=== PATIENT | female | born 1985 | race Caucasian/White ===

== ENCOUNTER 2017-04-02 01:59 | Emergency (ER) | payer SELFPAY ==
[~2017-04-02] VITALS: Ht 170.2 cm; Wt 65.0 kg
[2017-04-02 02:01] VITALS: BP 123/87; PULSE 87; RESP 16; TEMP 98.1; O2SAT 96
[2017-04-02 02:32] VITALS: O2SAT 99
[2017-04-02 02:46] LABS: AUTOMATED NEUTROPHIL # 6.4 TH/MM3 (1.8-7.7); BASOPHIL # 0.1 TH/MM3 (0-0.2); BASOPHIL % 0.8 % (0.0-2.0); EOSINOPHIL # 0.2 TH/MM3 (0-0.4); EOSINOPHIL % 1.6 % (0.0-4.0); HEMO FLAGS DIFF FINAL; LYMPHOCYTE # 3.1 TH/MM3 (1.0-4.8); MEAN CELL VOLUME 87.4 FL (80.0-100.0); MEAN CORPUSCULAR HEMOGLOBIN 29.5 PG (27.0-34.0); MEAN CORPUSCULAR HGB CONC 33.8 % (32.0-36.0); MONO % 9.5 % (0.0-8.0); NEUT % 59.1 % (16.0-70.0); PLATELET COUNT 276 TH/MM3 (150-450); RED BLOOD COUNT 4.23 MIL/MM3 (4.00-5.30); WHITE BLOOD COUNT 10.8 TH/MM3 (4.0-11.0)
[2017-04-02 02:58] LABS: PROTHROMBIN TIME - PATIENT 10.6 SEC (9.8-11.6)
[2017-04-02 03:07] LABS: ALT (GPT) 102 U/L (10-53); ANION GAP 6 MEQ/L (5-15); AST (GOT) 39 U/L (15-37); BICARBONATE 27.5 MEQ/L (21.0-32.0); BLOOD UREA NITROGEN 17 MG/DL (7-18); CHLORIDE 108 MEQ/L (98-107); GLOMERULAR FILTRATION RATE 63 ML/MIN (>89); POTASSIUM 3.8 MEQ/L (3.5-5.1); SODIUM (NA) 141 MEQ/L (136-145)
[2017-04-02 03:08] LABS: BLOOD, URINE NEG (NEG); GLUCOSE,URINE NEG (NEG); KETONE, URINE NEG (NEG); NITRITE,URINE NEG (NEG); PH, URINE 5.5 (5.0-8.5); URINE COLOR LIGHT-YELLOW (YELLW/STRAW)
[2017-04-02 03:14] LABS: BACTERIA, URINE FEW /hpf
[2017-04-02 03:15] LABS: SQUAMOUS EPITHELIAL CELL URINE 0-5 /hpf (0-5)
[2017-04-02 03:16] LABS: ALKALINE PHOSPHATASE 60 U/L (45-117); TOTAL BILIRUBIN ADULT 0.2 MG/DL (0.2-1.0)
[2017-04-02 03:21] LABS: CALCIUM OXALATE CRYSTALS,URINE FEW /hpf
[2017-04-02 03:22] LABS: COMMENT2 (UR) CULT NOT INDICATED
[2017-04-02 03:23] LABS: CULTURE IF INDICATED CULT NOT INDICATED
[2017-04-02] MEDS ORDERED: SODIUM CHLOR 0.9% 1000 ML INJ 1,000 ML IV ONE (03:45)
--- NOTE | 2017-04-02 04:39 | PD ---
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 She reports that she became concerned that it might be related to her irregular menstrual cycle. She reports that over the last 2 weeks she has had intermittent bleeding. She reports that normally her menstrual cycle will last for only 2 days and is light. The patient reports that she is sexually active and has not been regularly using contraceptive. The patient additionally reports that over the last few months she's had a rash on her extremities. She reports that it looks like scab blankenship. The patient reports that she does intermittently use methamphetamine. She reports that she does inject methamphetamine. She has not recently been checked for HIV or hepatitis. She denies any positive testing in the past. The patient reports that her vision has been intermittently blurry. She reports that sometimes it' ll clear with blinking her eyes. She reports that she wears contacts, however she has not been wearing them recently. Her last eye examination was and 2010. She reports that she has not had The patient denies any known recent fevers, cough, congestion, neck pain, chest pain, shortness of breath, abdominal pain, vomiting, diarrhea, urinary symptoms, or other neurologic symptoms. LMP: 2 weeks ago PFSH Past Medical History Narrative Medical The patient's past medical history is significant for IV drug use including methamphetamine and Cornelio. The patient has a history of anxiety disorder. Hx Anticoagulant Therapy: No Anxiety: Yes Cardiovascular Problems: No Chemotherapy: No Cerebrovascular Accident: No Diabetes: No Diminished Hearing: No Respiratory: No Immunizations Current: Yes ?: Not LMP: 04/02/17 Menopausal: No : 0 Para: 0 Miscarriage: 0 : 0 Past Surgical History Narrative Surgical The patient's past surgical history is significant for a cholecystectomy, breast reduction, tonsillectomy, IVC filter placement. Surgical History: No Previous Surgery Cholecystectomy: Yes Hysterectomy: No Thoracic Surgery: Yes (BREAST REDUCTION) Tonsillectomy: Yes Other Surgery: Yes (IVC FILTER) Social History Alcohol Use: No Tobacco Use: Yes (daily ) Substance Use: Yes (cornelio) Allergies-Medications (Allergen,Severity, Reaction): Coded Allergies: No Known Allergies (Unverified , 04/02/17) Reported Meds & Prescriptions Reported Meds & Active Scripts Active Keflex (Cephalexin) 500 Mg Cap 500 Mg PO Q6H 10 Days Review of Systems General / Constitutional: Positive: Fever Eyes: Positive: Blurred Vision, No: Visual changes HENT: Positive: Lightheadedness, No: Headaches, Rhinorrhea, Congestion Cardiovascular: No: Chest Pain or Discomfort Respiratory: No: Shortness of Breath Gastrointestinal: No: Abdominal Pain Genitourinary: No: Dysuria Musculoskeletal: No: Pain Skin: Positive Rash Neurologic: Positive: Dizziness, No: Weakness, Focal Abnormalities, Change in Mentation, Slurred Speech, Sensory Disturbance Psychiatric: No: Depression Endocrine: No: Polydipsia Hematologic/Lymphatic: No: Easy Bruising Physical Exam Narrative General: The patient is a well-developed well-nourished female in no acute distress. Head and Neck exam: Head is normocephalic atraumatic. Eyes: EOMI, pupils are equal round and reactive to light. Nose: Midline septum with pink mucous membranes Mouth: Dentition unremarkable. Moist mucus membranes. Posterior oropharynx is not erythematous. No tonsillar hypertrophy. Uvula midline. Airway patent. Neck: No palpable lymphadenopathy. No nuchal rigidity. No thyromegaly. Cardiovascular: Regular rate and rhythm without murmurs, gallops, or rubs. No pulse deficit to the extremities. Lungs: Clear to auscultation bilaterally. No wheezes, rhonchi, or rales. Abdomen: Soft, without tenderness to palpation in all 4 quadrants of the abdomen. No guarding, rebound, or rigidity. Normal bowel sounds are audible. No tenderness on palpation of McBurney's point. Extremities: No clubbing, cyanosis, or edema. 2+ pulses in all 4 extremities. Back: No spinous process tenderness to palpation. No costovertebral angle tenderness to palpation. Neurologic Exam: Cranial nerves 2-12 were intact on exam. Strength is 5/5 in all 4 extremities. No sensory deficits noted. Skin Exam: Small areas of crusting are noted worse on the right upper extremity , shoulder area that appeared to be consistent with pick blankenship. The patient has a few areas on her face, left arm, bilateral legs. The patient has track blankenship noted. Skin that is warm and dry. Data Data Last Documented VS Vital Signs Date Time Temp Pulse Resp B/P Pulse Ox O2 Delivery O2 Flow Rate FiO2 04/02/17 02:32 99 Room Air 04/02/17 02:01 98.1 87 16 123/87 Orders Complete Blood Count With Diff (04/02/17 02:19) Comprehensive Metabolic Panel (04/02/17 02:19) Prothrombin Time / Inr (Pt) (04/02/17 02:19) Act Partial Throm Time (Ptt) (04/02/17 02:19) Urinalysis - C+S If Indicated (04/02/17 02:19) Thyroid Stimulating Hormone (04/02/17 02:19) Iv Access Insert/Monitor (04/02/17 02:19) Ecg Monitoring (04/02/17 02:19) Oximetry (04/02/17 02:19) Type And Screen (04/02/17 02:19) Ed Urine Pregnancytest Poc (04/02/17 02:19) Gc And Chlamydia Pcr (04/02/17 02:19) Wet Prep Profile (04/02/17 02:19) Sodium Chlor 0.9% 1000 Ml Inj (Ns 1000 M (04/02/17 03:45) Labs Laboratory Tests Test 04/02/17 04/02/17 04/02/17 02:26 02:31 02:47 Urine Color LIGHT-YELLOW Urine Turbidity CLEAR Urine pH 5.5 Urine Specific [place] 1.003 Urine Protein NEG mg/dL Urine Glucose (UA) NEG mg/dL Urine Ketones NEG mg/dL Urine Occult Blood NEG Urine Nitrite NEG Urine Bilirubin NEG Urine Urobilinogen LESS THAN 2.0 MG/DL Urine Leukocyte Esterase NEG Urine Squamous Epithelial 0-5 /hpf Cells Urine Calcium Oxalate Crystals FEW /hpf Urine Bacteria FEW /hpf White Blood Count 10.8 TH/MM3 Red Blood Count 4.23 MIL/MM3 Hemoglobin 12.5 GM/DL Hematocrit 37.0 % Mean Corpuscular Volume 87.4 FL Mean Corpuscular Hemoglobin 29.5 PG Mean Corpuscular Hemoglobin 33.8 % Concent Red Cell Distribution Width 14.0 % Platelet Count 276 TH/MM3 Mean Platelet Volume 7.7 FL Neutrophils (%) (Auto) 59.1 % Lymphocytes (%) (Auto) 29.0 % Monocytes (%) (Auto) 9.5 % Eosinophils (%) (Auto) 1.6 % Basophils (%) (Auto) 0.8 % Neutrophils # (Auto) 6.4 TH/MM3 Lymphocytes # (Auto) 3.1 TH/MM3 Monocytes # (Auto) 1.0 TH/MM3 Eosinophils # (Auto) 0.2 TH/MM3 Basophils # (Auto) 0.1 TH/MM3 CBC Comment DIFF FINAL Differential Comment Prothrombin Time 10.6 SEC Prothromb Time International 1.0 RATIO Ratio Activated Partial 27.0 SEC Thromboplast Time Sodium Level 141 MEQ/L Potassium Level 3.8 MEQ/L Chloride Level 108 MEQ/L Carbon Dioxide Level 27.5 MEQ/L Anion Gap 6 MEQ/L Blood Urea Nitrogen 17 MG/DL Creatinine 1.03 MG/DL Estimat Glomerular Filtration 63 ML/MIN Rate Random Glucose 94 MG/DL Calcium Level 8.4 MG/DL Total Bilirubin 0.2 MG/DL Aspartate Amino Transf 39 U/L (AST/SGOT) Alanine Aminotransferase 102 U/L (ALT/SGPT) Alkaline Phosphatase 60 U/L Total Protein 7.2 GM/DL Albumin 3.7 GM/DL Thyroid Stimulating Hormone 1.010 uIU/ML 3rd Gen Blood Type A POSITIVE Antibody Screen NEGATIVE Blood Bank Comment Clue Cells (Wet Prep) NONE SEEN Vaginal Trichomonas (Wet Prep) NONE SEEN Vaginal Yeast (Wet Prep) NONE SEEN Chlamydia trachomatis DNA NOT DETECTED (PCR) Neisseria gonorrhoeae DNA NOT DETECTED (PCR) MDM Medical Decision Making Medical Screen Exam Complete: Yes Emergency Medical Condition: Yes Medical Record Reviewed: Yes Differential Diagnosis Folliculitis, versus impetigo, versus endocrine disorder, versus hepatitis, versus worsening visual acuity, versus symptomatic anemia. Narrative Course During the course of the patients emergency department visit, the patients history, examination, and differential diagnosis were reviewed with the patient. The patient had IV access obtained and blood work sent for analysis. The patient was placed on a derrick worker well service with oximetry and blood pressure monitoring. Visual acuity was done and both eyes. The patient's vision was poor in both eyes related to her not having her glasses or her contacts in. The patient was initially provided normal saline 1 L IV fluid bolus. The patients laboratory studies were reviewed and remarkable for a white count of 10.8, hemoglobin 12.5, platelets 276 with 9.5 monocytes, CMP is remarkable for chloride of 108, creatinine 1.03, GFR 63, calcium 8.4, AST 39, ALT 102, TSH 1.01, PT PTT within normal limits, urinalysis unremarkable. Wet prep is negative. The patient was instructed to follow-up with the health Department for additional testing including HIV and hepatitis testing. The patient was instructed that her liver enzymes are elevated and a pattern to suggest the possibility of a viral hepatitis. 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 He is instructed to wear her eyeglasses in the meantime. The patient was discharged home with Keflex for suspected impetigo. The patient is resting comfortably and feels better, is alert and in no distress. The patients results and examination findings were discussed with the patient. The repeat examination is unremarkable and benign. The history, exam, diagnostic testing, and current condition do not suggest any significant pathology to warrant further testing, continued ED treatment, admission, or surgical evaluation at this point. The vital signs have been stable. The patient does not have uncontrollable pain, intractable vomiting, or other significant symptoms. The patient's condition is stable and appropriate for discharge. The patient will pursue further outpatient evaluation with a primary care physician or other designated or consulting physician as indicated in the discharge instructions. The patient expressed understanding and was agreeable with this plan. Diagnosis Primary Impression: Generalized weakness Additional Impressions: Drug abuse Blurry vision Elevated liver enzymes Skin infection, bacterial Referrals: [facility] 2 days [facility] Dept[facility] 2 days Patient Instructions: Dysfunctional Uterine Bleeding (ED), General Instructions , Impetigo (ED) Additional Instructions: Follow-up with the health department for HIV testing and viral hepatitis testing. Follow-up with the eye doctor for evaluation. Med/Other Pt SpecificInfo: Prescription(s) given Scripts Cephalexin (Keflex)500 Mg Plb557 Mg PO Q6H 10 Days Ref 0 Prov:Carmita Obrien MD 04/02/17 Disposition: 01 DISCHARGE HOME Condition: Stable Carmita Obrien MD Apr 02, 2017 04:39
[2017-04-02] MEDS ORDERED: CEPH-460 PO (05:14)
[2017-04-02 06:12] LABS: CHLAMYDIA PCR NOT DETECTED (NOT DETECT); NEISSERIA PCR NOT DETECTED (NOT DETECT)
== END 2017-04-02 05:27 | disposition home or self-care (01) ==
LOC: NEPE 01:59
DX: R53.1 Weakness (principal); H53.8 Other visual disturbances; R74.8 Abnormal levels of other serum enzymes; L08.9 Local infection of the skin and subcutaneous tissue, unspecified; F19.10 Other psychoactive substance abuse, uncomplicated; Z72.0 Tobacco use
CPT/HCPCS: 80053; 81001; 84443; 84703; 85025; 85610; 85730; 86850; 86900; 86901; 87210; 87491; 87591; 96360; 99284; J7030

== ENCOUNTER 2017-07-23 04:39 | Observation (INO) | payer SELFPAY ==
[2017-07-23] VITALS (10 sets, daily range): BP systolic 105–165; BP diastolic 65–101; PULSE 66–112; RESP 16–22; TEMP 95.8–98.6; O2SAT 96–99
[~2017-07-23] VITALS: Ht 165.1 cm; Wt 70.0 kg
[~2017-07-23 04:39] MED LIST: CEPH-460 PO
[2017-07-23] MEDS ORDERED: KETOROLAC TROMETHAMINE 30 MG/ML (IVP) VIAL IV PUSH ONE (05:45)
[2017-07-23] MEDS ORDERED: SODIUM CHLORID 0.9% 500 ML INJ 500 ML IV ONE (05:45)
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
--- NOTE | 2017-07-23 06:02 | RADRPT ---
EXAM DATE/TIME: 07/23/2017 05:44 [place] COMPARISON: No previous studies available for comparison. INDICATIONS : Shortness of breath, pt states hurts to breathe MEDICAL HISTORY : None. SURGICAL HISTORY : None. ENCOUNTER: Initial ACUITY: 1 day PAIN SCORE: 7/10 LOCATION: Bilateral chest FINDINGS: A single view of the chest demonstrates the lungs to be symmetrically aerated without evidence of mas s, infiltrate or effusion. The cardiomediastinal contours are unremarkable. Osseous structures are intact. CONCLUSION: 1. No acute findings. Mild scoliosis. Harris Merchant MD on July 23, 2017 at 5:59 Board Certified Radiologist. This report was verified electronically.
[2017-07-23 06:10] LABS: AUTOMATED NEUTROPHIL # 4.1 TH/MM3 (1.8-7.7); BASOPHIL # 0.1 TH/MM3 (0-0.2); BASOPHIL % 0.9 % (0.0-2.0); EOSINOPHIL # 0.3 TH/MM3 (0-0.4); EOSINOPHIL % 3.5 % (0.0-4.0); HEMATOCRIT 38.1 % (35.0-46.0); HEMO FLAGS DIFF FINAL; LYMPH % 32.8 % (9.0-44.0); LYMPHOCYTE # 2.6 TH/MM3 (1.0-4.8); MEAN CELL VOLUME 86.9 FL (80.0-100.0); MEAN CORPUSCULAR HEMOGLOBIN 28.3 PG (27.0-34.0); MEAN CORPUSCULAR HGB CONC 32.5 % (32.0-36.0); MONO % 11.6 % (0.0-8.0); NEUT % 51.2 % (16.0-70.0); PLATELET COUNT 259 TH/MM3 (150-450); RED BLOOD COUNT 4.38 MIL/MM3 (4.00-5.30); RED CELL DISTRIBUTION WIDTH 14.1 % (11.6-17.2)
[2017-07-23 06:26] LABS: ALT (GPT) 42 U/L (10-53); ANION GAP 5 MEQ/L (5-15); AST (GOT) 25 U/L (15-37); BICARBONATE 28.6 MEQ/L (21.0-32.0); BLOOD UREA NITROGEN 8 MG/DL (7-18); CHLORIDE 103 MEQ/L (98-107); GLOMERULAR FILTRATION RATE 93 ML/MIN (>89); MAGNESIUM 2.2 MG/DL (1.5-2.5); SODIUM (NA) 137 MEQ/L (136-145)
[2017-07-23 06:29] LABS: ALKALINE PHOSPHATASE 63 U/L (45-117); CREATINE KINASE 158 U/L (26-192); TOTAL BILIRUBIN ADULT 0.2 MG/DL (0.2-1.0)
[2017-07-23 06:41] LABS: CKMB 2.1 NG/ML (0.5-3.6)
[2017-07-23 06:46] LABS: ALCOHOL LESS THAN 3 MG/DL (0-5)
[2017-07-23 07:01] LABS: BACTERIA, URINE MOD /hpf; BLOOD, URINE NEG (NEG); GLUCOSE,URINE NEG (NEG); KETONE, URINE NEG (NEG); NITRITE,URINE NEG (NEG); SQUAMOUS EPITHELIAL CELL URINE 2 /hpf (0-5); URINE COLOR YELLOW (YELLW/STRAW)
[2017-07-23 07:06] LABS: COMMENT (UR) CULTURE INDICATED; CULTURE IF INDICATED CULTURE INDICATED
[2017-07-23] MEDS ORDERED: VANCOMYCIN INJ 1,000 MG in SODIUM CHLOR 0.9% 250 ML INJ 250 ML IV ONE (07:30)
[2017-07-23] MEDS ORDERED: PIPERACIL-TAZO 3.375 GM PREMIX 50 ML IV ONE (07:30)
[2017-07-23] MEDS ORDERED: IOHEXOL 350 MG/ML 10 ML VIAL (for RAD DIAG) IVCONTRAST ONE (07:31)
--- NOTE | 2017-07-23 08:19 | RADRPT ---
EXAM DATE/TIME: 07/23/2017 07:49 [facility] COMPARISON: CT ABDOMEN & PELVIS W CONTRAST, September 17, 2014, 16:18. INDICATIONS : Right chest/flank pain for 2 days. ORAL CONTRAST: No oral contrast ingested. RADIATION DOSE: 5.81 CTDIvol (mGy) MEDICAL HISTORY : None SURGICAL HISTORY : Cholecystectomy. IVC Filter placement. ENCOUNTER: Initial ACUITY: 1 day PAIN SCALE: 5/10 LOCATION: Right flank TECHNIQUE: Volumetric scanning of the abdomen and pelvis was performed. Using automated exposure control and ad justment of the mA and/or kV according to patient size, radiation dose was kept as low as reasonably achievable to obtain optimal diagnostic quality images. DICOM format image data is available electro nically for review and comparison. FINDINGS: LOWER LUNGS: Trace left and mild right basilar airspace consolidation and associated linear parenchymal opacities. LIVER: Visualized portions of the liver demonstrate homogeneous density without significant focal mass, intr ahepatic ductal dilatation or evidence for volume loss. Liver does appear mildly enlarged. Gallbladde r is surgically absent. SPLEEN: Visualized portions of the spleen are grossly unremarkable. PANCREAS: Within normal limits. KIDNEYS: Kidneys demonstrate symmetrical size without evidence for hydronephrosis. No evidence for radiopaque calculi. ADRENAL GLANDS: Within normal limits. VASCULAR: Abdominal aorta is normal in caliber. There is an IVC filter in place. There are coils in the region of the left gastric artery. BOWEL/MESENTERY: Appendix is visualized and normal in appearance. Bowel appears grossly unremarkable. No evidence for obstruction. ABDOMINAL WALL: Within normal limits. RETROPERITONEUM: There is no lymphadenopathy. BLADDER: No wall thickening or mass. REPRODUCTIVE: Changes consistent with prior tubal ligation. INGUINAL: There is no lymphadenopathy or hernia. MUSCULOSKELETAL: Within normal limits for patient age. CONCLUSION: 1. No evidence for radiopaque renal calculi or obstructive uropathy. 2. Normal appendix. 3. Minimal right basilar airspace consolidation and associated linear opacities. Overall pattern is m ost consistent with atelectasis/scarring. However, developing airspace infection or aspiration cannot be entirely excluded. 4. Ancillary findings, as above. Eddie Osborne MD on July 23, 2017 at 8:00 Board Certified Radiologist. This report was verified electronically.
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
[2017-07-23] MEDS ORDERED: SENNOSIDES 8.6 MG TAB PO PRN (08:30)
[2017-07-23] MEDS ORDERED: SODIUM CHLORIDE 0.9% FLUSH 10 ML FLUSH IV FLUSH PRN (08:30)
[2017-07-23] MEDS ORDERED: LACTULOSE SYRUP 20 GM/30 ML CUP PO PRN (08:30)
[2017-07-23] MEDS ORDERED: NALOXONE HCL 0.4 MG/ML AMP IV PUSH PRN (08:30)
[2017-07-23] MEDS ORDERED: BISACODYL 10 MG SUPP RECTAL PRN (08:30)
[2017-07-23] MEDS ORDERED: ACETAMINOPHEN 325 MG TAB PO PRN ×2 (08:30)
[2017-07-23] MEDS ORDERED: ONDANSETRON HCL 4 MG/2 ML VIAL IVP PRN (08:30)
[2017-07-23] MEDS ORDERED: ACETAMINOPHEN/HYDROcodone 325 MG/5 MG TAB PO PRN (08:30)
[2017-07-23] MEDS ORDERED: MAGNESIUM HYDROXIDE SUSP 30 ML CUP PO PRN (08:30)
[2017-07-23] MEDS: SODIUM CHLORIDE 0.9% FLUSH 10 ML FLUSH IV FLUSH SCH ×2 (09:00→10:14)
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
[2017-07-23] MEDS: LEVOFLOXACIN 750 MG TAB PO SCH (10:14)
[2017-07-23] MEDS: ACETAMINOPHEN/HYDROcodone 325 MG/7.5 MG TAB PO PRN ×2 (12:13→21:05)
--- NOTE | 2017-07-23 13:58 | EKG ---
Date Performed: 07/23/2017 Time Performed: 06:17:11 PTAGE: 31 years EKG: Sinus rhythm WITH SINUS ARRHYTHMIA NORMAL ECG Compared to prior tracing no significant change PREVIOUS TRACING : 07/06/2017 11.31 DOCTOR: Robert Potter Interpretating Date/Time 07/23/2017 13:56:12
[2017-07-24 00:06] VITALS: PULSE 59
[2017-07-24 00:17] VITALS: BP 105/56; PULSE 54; RESP 18; TEMP 98.2; O2SAT 98
[2017-07-24 04:18] VITALS: PULSE 80
[2017-07-24 04:30] VITALS: BP 106/50; PULSE 78; RESP 18; TEMP 98.3; O2SAT 96
[2017-07-24 05:35] LABS: AUTOMATED NEUTROPHIL # 5.9 TH/MM3 (1.8-7.7); BASOPHIL % 0.4 % (0.0-2.0); EOSINOPHIL # 0.1 TH/MM3 (0-0.4); EOSINOPHIL % 1.2 % (0.0-4.0); HEMATOCRIT 35.3 % (35.0-46.0); HEMO FLAGS DIFF FINAL; LYMPH % 23.7 % (9.0-44.0); LYMPHOCYTE # 2.2 TH/MM3 (1.0-4.8); MEAN CELL VOLUME 88.1 FL (80.0-100.0); MEAN CORPUSCULAR HEMOGLOBIN 29.2 PG (27.0-34.0); MEAN CORPUSCULAR HGB CONC 33.2 % (32.0-36.0); MONO % 9.7 % (0.0-8.0); PLATELET COUNT 221 TH/MM3 (150-450); RED BLOOD COUNT 4.01 MIL/MM3 (4.00-5.30); RED CELL DISTRIBUTION WIDTH 14.2 % (11.6-17.2); WHITE BLOOD COUNT 9.1 TH/MM3 (4.0-11.0)
[2017-07-24 07:23] VITALS: BP 117/69; PULSE 73; RESP 16; TEMP 98.4; O2SAT 98
[2017-07-24 08:00] VITALS: PULSE 67
[2017-07-24] MEDS: ACETAMINOPHEN/HYDROcodone 325 MG/7.5 MG TAB PO PRN (08:32)
[2017-07-24] MEDS: LEVOFLOXACIN 750 MG TAB PO SCH (08:32)
[2017-07-24] MEDS: SODIUM CHLORIDE 0.9% FLUSH 10 ML FLUSH IV FLUSH SCH (08:32)
[2017-07-24] MEDS ORDERED: IBUP-232 PO (10:37)
[2017-07-24] MEDS ORDERED: LEVA750T9 PO (10:37)
--- NOTE | 2017-07-24 10:38 | HHI.DCPOC ---
Discharge Care Plan Diagnosis: (1) Pneumonia Goals to Promote Your Health * To prevent worsening of your condition and complications * To maintain your health at the optimal level Directions to Meet Your Goals Take your medications as prescribed Follow your dietary instruction Follow activity as directed Keep your appointments as scheduled Take your immunizations and boosters as scheduled If your symptoms worsen call your PCP, if no PCP go to Urgent Care Center or Emergency Room Smoking is Dangerous to Your Health. Avoid second hand smoke Call the 24-hour hour crisis hotline for domestic abuse at Barrie Urbina MD Jul 24, 2017 10:38
--- NOTE | 2017-07-24 10:43 | HHI.PR ---
Subjective Remarks Follow up flank/ribcage pain, pneumonia. Patient still reporting pain, not much better. Denies dyspnea, cough. Feels ready to go home. Objective Vitals Vital Signs Date Time Temp Pulse Resp B/P (MAP) Pulse Ox O2 Delivery O2 Flow Rate FiO2 07/24/17 08:00 67 07/24/17 07:23 98.4 73 16 117/69 (85) 98 07/24/17 04:30 98.3 78 18 106/50 (68) 96 07/24/17 04:18 80 07/24/17 00:17 98.2 54 18 105/56 (72) 98 07/24/17 00:06 59 07/23/17 22:49 18 07/23/17 20:11 95.8 84 18 133/73 (93) 96 07/23/17 20:08 97 07/23/17 15:40 98.3 68 16 105/68 (80) 98 07/23/17 15:00 80 07/23/17 11:31 66 I/O 07/23/17 07/23/17 07/23/17 07/24/17 07/24/17 07/24/17 07:00 15:00 23:00 07:00 15:00 23:00 Intake Total 1000 ml 750 ml Output Total 900 ml Balance 1000 ml -150 ml Intake Oral 250 ml 750 ml IV Total 750 ml Output Urine Total 900 ml Result Diagram: 07/24/17 0417 07/23/[address] Angiography 07/23/17725 Signed Impressions: Service Date/Time: Sunday, July 23, 2017 07:54 - CONCLUSION: 1. No evidence of pulmonary embolism. Jeffrey Larios MD Abdomen/Pelvis CT 07/23/17 0543 Signed Impressions: Service Date/Time: Sunday, July 23, 2017 07:49 - CONCLUSION: 1. No evidence for radiopaque renal calculi or obstructive uropathy. 2. Normal appendix. 3. Minimal right basilar airspace consolidation and associated linear opacities. Overall pattern is most consistent with atelectasis/scarring. However, developing airspace infection or aspiration cannot be entirely excluded. 4. Ancillary findings, as above. Eddie Osborne MD Chest X-Ray 07/23/17525 Signed Impressions: Service Date/Time: Sunday, July 23, 2017 05:44 - CONCLUSION: 1. No acute findings. Mild scoliosis. Harris Merchant MD Objective Remarks General: No acute distress. Heart: Regular rate and rhythm. No murmur. Lungs: Clear to auscultation bilaterally. No wheezes, rales, or rhonchi. Breathing is nonlabored. Abdomen: Soft, nontender, nondistended. Extremities: No lower extremity edema. Psych: Alert and oriented. Procedures None Urinary Catheter: No Vascular Central Line Catheter: No A/P Problem List: (1) Tobacco abuse ICD Code: Z72.0 - Tobacco use (2) UTI (urinary tract infection) ICD Code: N39.0 - Urinary tract infection, site not specified (3) Pneumonia ICD Code: J18.9 - Pneumonia, unspecified organism Assessment and Plan 1. Pneumonia: Continue Levaquin. Still having right back/ribcage pain. Stable on room air. Blood cultures are pending. Afebrile. 2. UTI: Urine culture is pending. 3. History of IV drug use: Patient was not forthcoming with information about drug use. UDS positive for cannabinoids. 4. Tobacco abuse: Counselled to quit. 5. DVT prophylaxis: KASI Tobin. Discharge Planning Plan for discharge home today in stable condition. Ibuprofen for pain. Regular diet. Activity as tolerated. Barrie Urbina MD Jul 24, 2017 10:43
[2017-07-24] MEDS ORDERED: IBUPROFEN 600 MG TAB PO PRN (10:45)
== END 2017-07-24 14:05 | disposition home or self-care (01) ==
LOC: NEPE 04:39 → NEDA 07:30 → NEPGCP 09:24
PROVIDERS: ADMIT Family Medicine; ATTEND Family Medicine
DX: J18.9 Pneumonia, unspecified organism (principal); B19.20 Unspecified viral hepatitis C without hepatic coma; R06.02 Shortness of breath; R82.99 Other abnormal findings in urine; M54.6 Pain in thoracic spine; F41.9 Anxiety disorder, unspecified; F17.200 Nicotine dependence, unspecified, uncomplicated; Z87.898 Personal history of other specified conditions
CPT/HCPCS: 71010; 71275; 74176; 80053; 80307; 81001; 82550; 82552; 83605; 83690; 83735; 83880; 84484; 84703; 85025; 85652; 86140; 87040; 87086; 93005; 96361; 96365; 96375; 96376; 99285; G0378; J1885; J2543; J3370; J7040; J7050; Q9967